=== PATIENT | female | born 1985 | race Caucasian/White ===

== ENCOUNTER 2017-09-20 00:44 | Emergency (ER) | payer MEDICAID, OTHER ==
[~2017-09-20] VITALS: Ht 170.2 cm; Wt 100.2 kg
[2017-09-20 00:51] VITALS: BP 120/86
[2017-09-20] MEDS ORDERED: RANI75TA PO (00:53)
--- NOTE | 2017-09-20 00:56 | NUR ---
TO ER BED 12
--- NOTE | 2017-09-20 00:59 | NUR ---
32/F CAME IN W C/O DIFFICULTY SWALLOWING AND ACID REFLUX, INTERMITTENT X 2 WEEKS. PT ALSO REPORTS N/V X 2 DAYS AGO AND FREQUENT BELCHING. DENIES ANY ABD PAIN. BS ACTIVE X4, ABD SOFT, ROUND, -TENDERNESS. DENIES PMH/RX, TOOK ZANTAC WITHOUT RELIEF OF SX
[2017-09-20] MEDS ORDERED: DICYCLOMINE HCL LIQUID 20 MG, ALUMINUM HYD/MAG/SIMETHICONE 30 ML, LIDOCAINE VISCOUS 2% ... PO ONE ×3 (01:10)
[2017-09-20 01:24] LABS: BASOPHILS % (AUTO) 0.5 % (0.0-2.0); EOSINOPHILS # (AUTO) 0.2 K/uL (0-0.4); EOSINOPHILS % (AUTO) 2.8 % (0.0-4.0); HEMATOCRIT 40.8 % (36-48); HEMOGLOBIN 13.6 g/dL (12.0-16.0); LYMPHOCYTES # (AUTO) 2.9 K/uL (2.5-16.5); MEAN CORPUSCULAR HEMOGLOBIN 29 pg (27-31); MEAN CORPUSCULAR HGB CONC 33 g/dL (33-37); MEAN CORPUSCULAR VOLUME 85.5 fL (80-94); MONOCYTES # (AUTO) 0.5 K/uL (0.8-1.0); MONOCYTES % (AUTO) 6.4 % (1.7-9.3); NEUTROPHILS # (AUTO) 4.2 K/uL (1.8-7.7); NEUTROPHILS % (AUTO) 53.3 % (42.2-75.2); PLATELET COUNT (AUTO) 244 K/uL (140-450); RED BLOOD CELL COUNT(AUTO) 4.77 MIL/uL (4.20-5.40); RED CELL DISTRIBUTION WIDTH 13.6 % (11.6-13.7); WHITE BLOOD COUNT (AUTO) 7.9 K/uL (4.8-10.8)
[2017-09-20 01:33] LABS: CARBON DIOXIDE 27.5 mmol/L (21-32); CREATININE 0.7 mg/dL (0.6-1.3); POTASSIUM 3.5 mmol/L (3.5-5.1)
[2017-09-20 01:40] LABS: ALBUMIN 3.9 g/dL (3.4-5.0); TOTAL BILIRUBIN 0.2 mg/dL (0.0-1.0)
--- NOTE | 2017-09-20 03:06 | NUR ---
Patient discharged with v/s stable. Written and verbal after care instructions given and explained. Patient alert, oriented and verbalized understanding of instructions. Ambulatory with steady gait. All questions addressed prior to discharge. ID band removed. Patient advised to follow up with PMD. Rx of MYLANTA given. Patient educated on indication of medication including possible reaction and side effects. Opportunity to ask questions provided and answered.
[2017-09-20 03:15] VITALS: BP 110/72
== END 2017-09-20 03:06 | disposition home or self-care (01) ==
LOC: MED 00:44
DX: R10.13 Epigastric pain (principal); Z98.51 Tubal ligation status
CPT/HCPCS: 36415; 80053; 81002; 81025; 83690; 85025; 99285

== ENCOUNTER 2019-01-08 22:55 | Emergency (ER) | payer MEDICAID, OTHER ==
[~2019-01-08] VITALS: Ht 170.2 cm; Wt 100.0 kg
[~2019-01-08 22:55] MED LIST: RANI-635 PO
[2019-01-08 22:58] VITALS: BP 105/76
--- NOTE | 2019-01-08 23:05 | NUR ---
PT AMBULATED TO BED 12 WITH STEADY GAIT. URINE SAMPLE PROVIDED.
[2019-01-08] MEDS ORDERED: KETOROLAC 30 MG/ML VIAL IVP ONE (23:10)
[2019-01-08] MEDS ORDERED: ONDANSETRON 4 MG/2 ML VIAL IVP ONE (23:10)
[2019-01-08] MEDS ORDERED: NACL 0.9% 1,000 ML IV ONE (23:10)
--- NOTE | 2019-01-08 23:15 | NUR ---
33 Y/O FEMALE PRESENTS TO ED, C/O OF LOWER ABDOMINAL ACHING PAIN 03/05. 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 BS ACTIVE ON ALL QUADRANTS. ABD SOFT AND TENDER, PAIN ON PALPATION ON LOWER QUADRANTS. DENIES ANY MEDICAL HX. PT VSS. ERMD AWARE. WILL CONTINUE TO MONITOR.
[2019-01-08 23:59] LABS: BASOPHILS % (AUTO) 0.3 % (0.0-2.0); EOSINOPHILS # (AUTO) 0.1 K/uL (0-0.4); EOSINOPHILS % (AUTO) 1.1 % (0.0-4.0); HEMATOCRIT 41.2 % (36-48); HEMOGLOBIN 13.8 g/dL (12.0-16.0); LYMPHOCYTES # (AUTO) 2.4 K/uL (2.5-16.5); LYMPHOCYTES % (AUTO) 31.1 % (20.5-51.1); MEAN CORPUSCULAR HEMOGLOBIN 29 pg (27-31); MEAN CORPUSCULAR HGB CONC 33 g/dL (33-37); MEAN CORPUSCULAR VOLUME 85.7 fL (80-94); MONOCYTES # (AUTO) 0.5 K/uL (0.8-1.0); MONOCYTES % (AUTO) 5.9 % (1.7-9.3); NEUTROPHILS # (AUTO) 4.8 K/uL (1.8-7.7); NEUTROPHILS % (AUTO) 61.6 % (42.2-75.2); PLATELET COUNT (AUTO) 264 K/uL (140-450); RED BLOOD CELL COUNT(AUTO) 4.81 MIL/uL (4.20-5.40); RED CELL DISTRIBUTION WIDTH 13.7 % (11.6-13.7); WHITE BLOOD COUNT (AUTO) 7.9 K/uL (4.8-10.8)
[2019-01-09 00:15] LABS: ALBUMIN 3.9 g/dL (3.4-5.0); ANION GAP 10.7 (8-16); CARBON DIOXIDE 29.3 mmol/L (21-32); CREATININE 0.7 mg/dL (0.6-1.3); TOTAL BILIRUBIN 0.4 mg/dL (0.0-1.0)
--- NOTE | 2019-01-09 00:23 | NUR ---
PT TAKEN TO XRAY
--- NOTE | 2019-01-09 00:38 | NUR ---
PT BACK FROM XR
--- NOTE | 2019-01-09 00:49 | NUR ---
PT LAYING IN BED, RR EVEN AND UNLABORED. VSS. DENIES ANY PAIN OR NAUSEA AT THIS TIME. ALL NEEDS MET.
[2019-01-09 02:15] VITALS: BP 113/76
--- NOTE | 2019-01-09 02:15 | NUR ---
PT DISCHARGED WITH PAPERWORK. RX LACTULOSE, MINERAL OIL, ZOFRAN. EDUCATED PT REGARDING MEDICATIONS AND S/E. EDUCATED PT REGARDING DISCHARGE DIAGNOSIS. PT VERBALIZED UNDERSTANDING OF TEACHING. TOLD PT TO FOLLOW UP WITH PCP AND WHEN TO RETURN TO ED. PT VSS. ALL QUESIONS ANSWERED.
== END 2019-01-09 02:15 | disposition home or self-care (01) ==
LOC: MED 22:55
DX: R10.84 Generalized abdominal pain (principal); R11.10 Vomiting, unspecified; Z90.49 Acquired absence of other specified parts of digestive tract; Z79.899 Other long term (current) drug therapy
CPT/HCPCS: 36415; 74022; 80053; 81002; 81025; 83690; 85025; 96361; 96374; 96375; 99283; J1885; J2405; J7030

== ENCOUNTER 2019-12-06 13:47 | Emergency (ER) | payer OTHER ==
[~2019-12-06] VITALS: Ht 170.2 cm; Wt 99.8 kg
[2019-12-06 14:23] VITALS: BP 112/74
--- NOTE | 2019-12-06 15:14 | NUR ---
Diana eisenberg in [facility] - 12/06/19 at 1516 by [email or web address] C/O L ANKLE PAIN & SWELLING X 3 WEEKS.
--- NOTE | 2019-12-06 15:16 | NUR ---
BIB SELF C/O L ANKLE PAIN & SWELLING X 3 WEEKS. PATIENT STATES PAIN OF 7/10 AT THIS TIME.
[2019-12-06 15:45] VITALS: BP 112/74
== END 2019-12-06 15:45 | disposition home or self-care (01) ==
LOC: MED 13:47
DX: M25.572 Pain in left ankle and joints of left foot (principal); Z79.899 Other long term (current) drug therapy; Z98.890 Other specified postprocedural states
CPT/HCPCS: 73610; 73630; 99284; Q0092

== ENCOUNTER 2022-12-09 20:29 | Emergency (ER) | payer OTHER ==
[~2022-12-09] VITALS: Ht 167.6 cm; Wt 99.8 kg
[2022-12-09 21:17] VITALS: BP 109/67; PULSE 76; RESP 18; TEMP 97.9; O2SAT 94
--- NOTE | 2022-12-09 22:15 | NUR ---
Pt to bed 9
--- NOTE | 2022-12-09 22:17 | NUR ---
Patient resting in bed, A/Ox4, chest rise and fall symmetrical, no s/s of distress, patient on monitor, call light within reach.
[2022-12-09] MEDS ORDERED: ACETAMINOPHEN 325 MG TAB PO ONE (22:50)
--- NOTE | 2022-12-09 23:53 | NUR ---
Dr. Fallon at bedside with pt.
[2022-12-10] MEDS ORDERED: NAPR-54 PO (00:21)
--- NOTE | 2022-12-10 00:30 | NUR ---
Patient resting in bed, A/Ox4, chest rise and fall symmetrical, no c/o pain or s/s of distress, patient on monitor, call light within reach.
[2022-12-10 00:42] VITALS: BP 102/60; PULSE 74; RESP 16; TEMP 98.3; O2SAT 99
--- NOTE | 2022-12-10 00:43 | NUR ---
Patient discharged with v/s stable. Written and verbal after care instructions given and explained. Patient alert, oriented and verbalized understanding of instructions. Ambulatory with crutches assist, steady gait. All questions addressed prior to discharge. ID band removed. Patient advised to follow up with PMD. Rx given to patient. Patient educated on indication of medication including possible reaction and side effects. Opportunity to ask questions provided and answered. Addendum: 12/10/22 at 0046 by [email or web address] Patient discharged with v/s stable. Patient demonstrated adequate use of crutches by ambulating 25 feet safely. Written and verbal after care instructions given and explained. Patient alert, oriented and verbalized understanding of instructions. Ambulatory with crutches assist, steady gait. All questions addressed prior to discharge. ID band removed. Patient advised to follow up with PMD. Rx given to patient. Patient educated on indication of medication including possible reaction and side effects. Opportunity to ask questions provided and answered.
== END 2022-12-10 00:43 | disposition home or self-care (01) ==
LOC: MED 20:29
DX: S63.591A Other specified sprain of right wrist, initial encounter (principal); S93.691A Other sprain of right foot, initial encounter; M67.431 Ganglion, right wrist; W18.30XA Fall on same level, unspecified, initial encounter; Y93.89 Activity, other specified; Y92.89 Other specified places as the place of occurrence of the external cause; Y99.8 Other external cause status
CPT/HCPCS: 29125; 73110; 73630; 99284; Q0092

== ENCOUNTER 2023-02-05 17:00 | Emergency (ER) | payer OTHER ==
[~2023-02-05] VITALS: Ht 167.6 cm; Wt 107.5 kg
[~2023-02-05 17:00] MED LIST changes: +NAPR-54 PO
[2023-02-05 17:23] VITALS: BP 121/78; PULSE 86; RESP 18; TEMP 96.9; O2SAT 96
[2023-02-05 18:25] VITALS: BP 120/75; PULSE 85; RESP 19; TEMP 97.8; O2SAT 98
== END 2023-02-05 18:25 | disposition home or self-care (01) ==
LOC: MED 17:00
DX: M79.671 Pain in right foot (principal); Z79.899 Other long term (current) drug therapy
CPT/HCPCS: 99281

== ENCOUNTER 2024-02-22 23:52 | Emergency (ER) | payer OTHER ==
[~2024-02-22] VITALS: Ht 170.2 cm; Wt 95.3 kg
[~2024-02-22 23:52] MED LIST changes: +NAPR-337 PO; -NAPR-54 PO
[2024-02-23 00:07] VITALS: BP 120/89; PULSE 92; RESP 16; TEMP 96.5; O2SAT 94
[2024-02-23] MEDS ORDERED: cefTRIAXone 1,000 MG VIAL ONE (01:02)
[2024-02-23] MEDS ORDERED: LIDOCAINE MPF 1% 5 ML ONE (01:03)
[2024-02-23] MEDS: KETOROLAC 60 MG/2 ML VIAL IM ONE (01:40)
[2024-02-23] MEDS: cefTRIAXone 1,000 MG in LIDOCAINE MPF 1% 2.1 ML IM ONE (01:42)
[2024-02-23] MEDS ORDERED: NAPR-337 PO (02:44)
[2024-02-23] MEDS ORDERED: AMOX1TAB8 PO (02:44)
[2024-02-23] MEDS ORDERED: BACITRACIN OINT 500 UNITS/GM PKT TP ONE (02:58)
== END 2024-02-23 02:52 | disposition home or self-care (01) ==
LOC: MED 23:52
DX: S70.319A Abrasion, unspecified thigh, initial encounter (principal); Z79.899 Other long term (current) drug therapy; W55.03XA Scratched by cat, initial encounter; Y93.89 Activity, other specified; Y92.89 Other specified places as the place of occurrence of the external cause; Y99.8 Other external cause status
CPT/HCPCS: 90471; 90715; 96372; 99284; J0696; J1885; J2001